=== PATIENT | female | born 1955 | race American Indian/Alaskan Native ===

== ENCOUNTER 2017-02-20 16:10 | Emergency (ER) | payer MEDICAID ==
[2017-02-20 16:46] VITALS: BP 154/78
[2017-02-20] MEDS ORDERED: VIBRAMYCIN PO ONE (19:25)
--- NOTE | 2017-02-20 19:25 | Emergency Department Report ---
ED General Adult HPI - General Chief complaint: Animal Bite Stated complaint: TICK FOUND IN UNDERARM Time Seen by Provider: 02/20/17 19:03 Source: patient Mode of arrival: Ambulatory Limitations: No Limitations - History of Present Illness Initial comments: PT states this afternoon, she noticed a tick under her right arm. PT states that she was unable to get the tick off. PT states she had to have her daughter stick it with a hot needle and it fell off. PT states she did not see where the tick landed. PT states she has not been in the [place] recently but states she does sit out side on her back patio to smoke. PT states she did not see the tick last night when she showered. PT states she is concerned for lyme disease MD Complaint: tick bite -: Gradual, days(s) Location: right, upper extremity Severity scale (0 -10): 0 Consistency: now resolved Improves with: other (after removing tick ) Associated Symptoms: denies other symptoms. denies: fever/chills, loss of appetite, nausea/vomiting, rash, shortness of breath Treatments Prior to Arrival: none - Related Data Previous Rx's Medication Instructions Recorded Last Taken Type Alendronate Sodium [Fosamax] 70 mg PO QWEEK #4 tablet 04/02/15 Unknown Rx Calcium Carbonate [Calcium] 600 mg PO BID #60 tablet 04/02/15 Unknown Rx Gemfibrozil [Lopid] 600 mg PO BID #60 tablet 04/02/15 Unknown Rx Glimepiride [Amaryl] 2 mg PO QAM #30 tablet 04/02/15 Unknown Rx Hydrochlorothiazide [HCTZ] 25 mg PO QDAY #30 tablet 04/02/15 Unknown Rx Loratadine [Claritin] 10 mg PO DAILY #30 tablet 04/02/15 Unknown Rx Losartan [Cozaar] 50 mg PO QDAY #30 tablet 04/02/15 Unknown Rx Montelukast [Singulair] 10 mg PO DAILY #30 tablet 04/02/15 Unknown Rx Omeprazole [PriLOSEC] 40 mg PO QDAY #30 capsule. 04/02/15 Unknown Rx Pregabalin [Lyrica] 100 mg PO TID #90 capsule 04/02/15 Unknown Rx Simvastatin [Zocor TAB] 20 mg PO QHS #30 tablet 04/02/15 Unknown Rx Sitagliptin Phosphate [Januvia] 100 mg PO DAILY #30 tablet 04/02/15 Unknown Rx Trospium Chloride [Trospium 60 mg PO DAILY #30 cap.er.24h 04/02/15 Unknown Rx Chloride ER] Zolpidem Tartrate [Ambien CR] 12.5 mg PO QHS #15 tab.mphase 04/02/15 Unknown Rx metFORMIN [Glucophage] 850 mg PO TID #90 tablet 04/02/15 Unknown Rx Azithromycin [Zithromax Z-AASHISH] 250 mg PO DAILY #6 tablet 12/30/15 Unknown Rx Doxycycline [Vibramycin CAP] 100 mg PO Q12HR #14 capsule 02/20/17 Unknown Rx Allergies Allergy/AdvReac Type Severity Reaction Status Date / Time Sulfa (Sulfonamide Allergy Swelling Verified 04/02/15 13:53 Antibiotics) ED Review of Systems ROS: Stated complaint: TICK FOUND IN UNDERARM Other details as noted in HPI Comment: All other systems reviewed and negative Constitutional: denies: chills, fever Respiratory: denies: shortness of breath, SOB with exertion, SOB at rest Gastrointestinal: denies: abdominal pain, nausea, vomiting Musculoskeletal: arthralgia (chronic ), other (PT states she has a hx of RA ) Skin: change in color (erythema under R arm ) ED Past Medical Hx - Past Medical History Previous Medical History?: Yes Hx Diabetes: Yes Hx Arthritis: Yes Hx Asthma: Yes Additional medical history: High cholesterol. CHRONIC PAIN - Surgical History Past Surgical History?: Yes Additional Surgical History: carpal tunnel. tubal ligation. mass removed from neck - Social History Smoking Status: Current Every Day Smoker Substance Use Type: None - Medications Home Medications: Home Medications Medication Instructions Recorded Confirmed Last Taken Type Alendronate Sodium [Fosamax] 70 mg PO QWEEK #4 tablet 04/02/15 Unknown Rx Calcium Carbonate [Calcium] 600 mg PO BID #60 tablet 04/02/15 Unknown Rx Gemfibrozil [Lopid] 600 mg PO BID #60 tablet 04/02/15 Unknown Rx Glimepiride [Amaryl] 2 mg PO QAM #30 tablet 04/02/15 Unknown Rx Hydrochlorothiazide [HCTZ] 25 mg PO QDAY #30 tablet 04/02/15 Unknown Rx Loratadine [Claritin] 10 mg PO DAILY #30 tablet 04/02/15 Unknown Rx Losartan [Cozaar] 50 mg PO QDAY #30 tablet 04/02/15 Unknown Rx Montelukast [Singulair] 10 mg PO DAILY #30 tablet 04/02/15 Unknown Rx Omeprazole [PriLOSEC] 40 mg PO QDAY #30 capsule.dr 04/02/15 Unknown Rx Pregabalin [Lyrica] 100 mg PO TID #90 capsule 04/02/15 Unknown Rx Simvastatin [Zocor TAB] 20 mg PO QHS #30 tablet 04/02/15 Unknown Rx Sitagliptin Phosphate [Januvia] 100 mg PO DAILY #30 tablet 04/02/15 Unknown Rx Trospium Chloride [Trospium 60 mg PO DAILY #30 cap.er.24h 04/02/15 Unknown Rx Chloride ER] Zolpidem Tartrate [Ambien CR] 12.5 mg PO QHS #15 tab.mphase 04/02/15 Unknown Rx metFORMIN [Glucophage] 850 mg PO TID #90 tablet 04/02/15 Unknown Rx Azithromycin [Zithromax Z-AASHISH] 250 mg PO DAILY #6 tablet 12/30/15 Unknown Rx Doxycycline [Vibramycin CAP] 100 mg PO Q12HR #14 capsule 02/20/17 Unknown Rx ED Physical Exam - General Limitations: No Limitations General appearance: alert, in no apparent distress - Head Head exam: Present: atraumatic, normocephalic, normal inspection - Eye Eye exam: Present: normal appearance. Absent: conjunctival injection, nystagmus - ENT ENT exam: Present: normal exam, mucous membranes moist, normal external ear exam - Neck Neck exam: Present: normal inspection, full ROM. Absent: lymphadenopathy - Respiratory Respiratory exam: Present: normal lung sounds bilaterally. Absent: respiratory distress, chest wall tenderness - Cardiovascular Cardiovascular Exam: Present: regular rate, normal rhythm, normal heart sounds - Extremities Exam Extremities exam: Present: full ROM. Absent: tenderness - Expanded Upper Extremity Exam Right Shoulder Exam: Present: full ROM, erythema (R axilla with 1 cm erythema, no fb seen ). Absent: tenderness, swelling, abrasion Vascular: Present: radial pulse. Absent: vascular compromise - Back Exam Back exam: Present: normal inspection, full ROM - Neurological Exam Neurological exam: Present: alert, oriented X3 - Psychiatric Psychiatric exam: Present: normal affect, normal mood - Skin Skin exam: Present: warm, dry, intact ED Course Vital Signs 02/20/17 16:43 Temperature 99 F Pulse Rate 99 H Blood Pressure 154/78 O2 Sat by Pulse 100 Oximetry - Reevaluation(s) Reevaluation #1: 02/20/17 19:31 Pt aware no residual tick seen. PT aware of plan of care. PT has no questions at this time. - Pulse Oximetry Interpretation Digit-Finger Initial Pulse Oximetry Readin Actions Taken: none ED Medical Decision Making - Differential Diagnosis tick bite, fb Critical Care Time: No Critical care attestation.: If time is entered above; I have spent that time in minutes in the direct care of this critically ill patient, excluding procedure time. ED Disposition Clinical Impression: Tick bite of axillary region Qualifiers: Encounter type: initial encounter Laterality: right Qualified Code(s): S40.861A - Insect bite (nonvenomous) of right upper arm, initial encounter Disposition: TO HOME OR SELFCARE Is pt being admited?: No Does the pt Need Aspirin: No Condition: Stable Instructions: Lyme Disease (ED), Tick Bite (ED), [place] Spotted Fever ( ED) Additional Instructions: Avoid direct sun exposure while you are taking Doxy Follow up with PCP in 3-5 days Have your BP rechecked at follow up Return to the ED if worsening or concerns Prescriptions: Doxycycline [Vibramycin CAP] 100 mg PO Q12HR #14 capsule Referrals: PRIMARY CARE, [Primary Care Provider] - 3-5 Days IVELISSE AGARWAL MD [Staff Physician] - 3-5 Days Time of Disposition: 19:33
== END 2017-02-20 19:40 | disposition home or self-care (01) ==
LOC: ED 16:10
DX: S40.861A Insect bite (nonvenomous) of right upper arm, initial encounter (principal); E11.9 Type 2 diabetes mellitus without complications; M19.90 Unspecified osteoarthritis, unspecified site; J45.909 Unspecified asthma, uncomplicated; E78.00 Pure hypercholesterolemia, unspecified; G89.29 Other chronic pain; F17.200 Nicotine dependence, unspecified, uncomplicated; Z88.2 Allergy status to sulfonamides; W57.XXXA Bitten or stung by nonvenomous insect and other nonvenomous arthropods, initial encounter; Y93.89 Activity, other specified; Y99.9 Unspecified external cause status; Y92.89 Other specified places as the place of occurrence of the external cause
CPT/HCPCS: 99282

== ENCOUNTER 2017-03-17 22:40 | Emergency (ER) | payer MEDICAID ==
[2017-03-18] MEDS ORDERED: NORCO 5/325 PO ONE (00:41)
[2017-03-18] MEDS ORDERED: ZOFRAN ODT PO ONE (00:42)
[2017-03-18] MEDS ORDERED: BOOSTRIX IM ONE (00:42)
[2017-03-18] MEDS ORDERED: XYLOCAINE 2%/ EPI 1:200,000 INFILTRATI ONE ×2 (01:10→01:16)
--- NOTE | 2017-03-18 01:17 | XRay Report ---
FINAL REPORT PROCEDURE: XR HAND 2V RT TECHNIQUE: RIGHT hand radiographs, AP and lateral views. CPT 34382-QZ HISTORY: laceration/trauma to 3RD DIGIT OF rt hand COMPARISON: No prior studies are available for comparison. FINDINGS: Fracture (s) and/or Dislocation(s): None . Alignment: Normal . Joint space(s): Mild narrowing of the joint spaces.. Soft tissues: There is significant soft tissue swelling over the mid to distal 3rd digit right hand. Bandaging over this region is noted. This does obscure some detail.. Bone mineralization: Normal . Foreign bodies: None . IMPRESSION: No evident fracture or dislocation. There is diffuse soft tissue swelling over the mid to distal 3rd digit right hand. There is some artifact caused by bandaging material this region..
[2017-03-18] MEDS ORDERED: ceFAZolin 2 GM in NACL 0.9% 100 ML IV ONE (02:20)
[2017-03-18] MEDS ORDERED: NACL 0.9% 1000 ML 1,000 ML IV ONE (02:20)
[2017-03-18 02:23] LABS: BUN/Creatinine Ratio 22.14; Basophils % (Auto) 0.9 % (0.0-1.8); Chloride 102.5 mmol/L (98-107); Eosinophils % (Auto) 2.2 % (0.0-4.3); Hematocrit 35.3 % (30.3-42.9); Hemoglobin 12.1 gm/dl (10.1-14.3); Mean Corpuscular HGB Conc 34 % (30-34); Mean Corpuscular Hemoglobin 33 pg (28-32); Mean Corpuscular Volume 97 fl (79-97); Platelet Count 289 K/mm3 (140-440); Potassium 4.5 mmol/L (3.6-5.0); Red Blood Count 3.64 M/mm3 (3.65-5.03); Red Cell Distribution Width 13.1 % (13.2-15.2); White Blood Count 9.1 K/mm3 (4.5-11.0)
[2017-03-18] MEDS ORDERED: MORPHINE IV ONE (02:24)
--- NOTE | 2017-03-18 02:28 | Emergency Department Report ---
- General Chief Complaint: Wound/Laceration Stated Complaint: LACERATION TO FINGER Time Seen by Provider: 03/18/17 00:41 Source: patient Mode of arrival: Ambulatory Limitations: No Limitations - History of Present Illness Initial Comments: 61-year-old female past medical history hypertension hyperlipidemia diabetes presents with complaint of laceration to distal right fingertips. 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 Patient has a large laceration to right distal fingertip. States that she bled profusely and noticed a chunk of skin missing which is why she came to the ER. Patient is unsure of tetanus status. Visible bloody-soaked gauze wrap to the right fingertip. Denies any other injuries. States that her right distal index finger and right distal ring finger were grazed at the tips. Patient accompanied by family members. -: This evening Extremity Location: Right: Hand (distal rigth 2nd, 3rd and 4th digit lacerations ) Place: home Patient Tetanus UTD: No Context: accidental Associated Symptoms: pain, other (bleeding) - Related Data Previous Rx's Medication Instructions Recorded Last Taken Type Alendronate Sodium [Fosamax] 70 mg PO QWEEK #4 tablet 04/02/15 Unknown Rx Calcium Carbonate [Calcium] 600 mg PO BID #60 tablet 04/02/15 Unknown Rx Gemfibrozil [Lopid] 600 mg PO BID #60 tablet 04/02/15 Unknown Rx Glimepiride [Amaryl] 2 mg PO QAM #30 tablet 04/02/15 Unknown Rx Hydrochlorothiazide [HCTZ] 25 mg PO QDAY #30 tablet 04/02/15 Unknown Rx Loratadine [Claritin] 10 mg PO DAILY #30 tablet 04/02/15 Unknown Rx Losartan [Cozaar] 50 mg PO QDAY #30 tablet 04/02/15 Unknown Rx Montelukast [Singulair] 10 mg PO DAILY #30 tablet 04/02/15 Unknown Rx Omeprazole [PriLOSEC] 40 mg PO QDAY #30 capsule. 04/02/15 Unknown Rx Pregabalin [Lyrica] 100 mg PO TID #90 capsule 04/02/15 Unknown Rx Simvastatin [Zocor TAB] 20 mg PO QHS #30 tablet 04/02/15 Unknown Rx Sitagliptin Phosphate [Januvia] 100 mg PO DAILY #30 tablet 04/02/15 Unknown Rx Trospium Chloride [Trospium 60 mg PO DAILY #30 cap.er.24h 04/02/15 Unknown Rx Chloride ER] Zolpidem Tartrate [Ambien CR] 12.5 mg PO QHS #15 tab.mphase 04/02/15 Unknown Rx metFORMIN [Glucophage] 850 mg PO TID #90 tablet 04/02/15 Unknown Rx Azithromycin [Zithromax Z-AASHISH] 250 mg PO DAILY #6 tablet 12/30/15 Unknown Rx Doxycycline [Vibramycin CAP] 100 mg PO Q12HR #14 capsule 02/20/17 Unknown Rx Cephalexin [Keflex] 500 mg PO Q6HR #28 cap 03/18/17 Unknown Rx oxyCODONE /ACETAMINOPHEN [Percocet 1 tab PO Q6HR PRN #20 tablet 03/18/17 Unknown Rx 5/325] Allergies Allergy/AdvReac Type Severity Reaction Status Date / Time Sulfa (Sulfonamide Allergy Swelling Verified 04/02/15 13:53 Antibiotics) ED Review of Systems ROS: Stated complaint: LACERATION TO FINGER Other details as noted in HPI Constitutional: denies: chills, fever Eyes: denies: eye pain, eye discharge, vision change ENT: denies: ear pain, throat pain Respiratory: denies: cough, shortness of breath, wheezing Cardiovascular: denies: chest pain, palpitations Endocrine: no symptoms reported Gastrointestinal: denies: abdominal pain, nausea, diarrhea Genitourinary: denies: urgency, dysuria, discharge Musculoskeletal: denies: back pain, joint swelling, arthralgia Skin: denies: rash, lesions Neurological: denies: headache, weakness, paresthesias Psychiatric: denies: anxiety, depression Hematological/Lymphatic: denies: easy bleeding, easy bruising ED Past Medical Hx - Past Medical History Previous Medical History?: Yes Hx Diabetes: Yes (oral meds-no insulin) Hx Arthritis: Yes Hx Asthma: Yes Additional medical history: High cholesterol. CHRONIC PAIN-low back,knees. sciatica. neuropathy - Surgical History Past Surgical History?: Yes Additional Surgical History: carpal tunnel. tubal ligation. mass removed from neck. nasal surgery-polyp removal - Social History Smoking Status: Current Every Day Smoker Substance Use Type: None - Medications Home Medications: Home Medications Medication Instructions Recorded Confirmed Last Taken Type Alendronate Sodium [Fosamax] 70 mg PO QWEEK #4 tablet 04/02/15 Unknown Rx Calcium Carbonate [Calcium] 600 mg PO BID #60 tablet 04/02/15 Unknown Rx Gemfibrozil [Lopid] 600 mg PO BID #60 tablet 04/02/15 Unknown Rx Glimepiride [Amaryl] 2 mg PO QAM #30 tablet 04/02/15 Unknown Rx Hydrochlorothiazide [HCTZ] 25 mg PO QDAY #30 tablet 04/02/15 Unknown Rx Loratadine [Claritin] 10 mg PO DAILY #30 tablet 04/02/15 Unknown Rx Losartan [Cozaar] 50 mg PO QDAY #30 tablet 04/02/15 Unknown Rx Montelukast [Singulair] 10 mg PO DAILY #30 tablet 04/02/15 Unknown Rx Omeprazole [PriLOSEC] 40 mg PO QDAY #30 capsule.dr 04/02/15 Unknown Rx Pregabalin [Lyrica] 100 mg PO TID #90 capsule 04/02/15 Unknown Rx Simvastatin [Zocor TAB] 20 mg PO QHS #30 tablet 04/02/15 Unknown Rx Sitagliptin Phosphate [Januvia] 100 mg PO DAILY #30 tablet 04/02/15 Unknown Rx Trospium Chloride [Trospium 60 mg PO DAILY #30 cap.er.24h 04/02/15 Unknown Rx Chloride ER] Zolpidem Tartrate [Ambien CR] 12.5 mg PO QHS #15 tab.mphase 04/02/15 Unknown Rx metFORMIN [Glucophage] 850 mg PO TID #90 tablet 04/02/15 Unknown Rx Azithromycin [Zithromax Z-AASHISH] 250 mg PO DAILY #6 tablet 12/30/15 Unknown Rx Doxycycline [Vibramycin CAP] 100 mg PO Q12HR #14 capsule 02/20/17 Unknown Rx Cephalexin [Keflex] 500 mg PO Q6HR #28 cap 03/18/17 Unknown Rx oxyCODONE /ACETAMINOPHEN [Percocet 1 tab PO Q6HR PRN #20 tablet 03/18/17 Unknown Rx 5/325] ED Physical Exam - General Limitations: No Limitations General appearance: alert, in no apparent distress - Head Head exam: Present: atraumatic, normocephalic - Eye Eye exam: Present: normal appearance, PERRL, EOMI - ENT ENT exam: Present: mucous membranes moist - Neck Neck exam: Present: normal inspection, full ROM - Respiratory Respiratory exam: Present: normal lung sounds bilaterally. Absent: respiratory distress - Cardiovascular Cardiovascular Exam: Present: regular rate, normal rhythm. Absent: systolic murmur, diastolic murmur, rubs, gallop - GI/Abdominal GI/Abdominal exam: Present: soft, normal bowel sounds - Extremities Exam Extremities exam: Present: normal inspection - Expanded Upper Extremity Exam Right Shoulder Exam: Present: normal inspection, full ROM Upper Arm exam: Present: normal inspection, full ROM Elbow exam: Present: normal inspection, full ROM Forearm Wrist exam: Present: normal inspection, full ROM Hand Wrist exam: Present: full ROM (range of motion lumbricals PIPs DIPs and MCP intact all right hand and digits. Distal capillary refill less than one second all fingers), tenderness, swelling, abrasion (multiple abrasion to fingertips), laceration, amputation (distal right middle fingertip tuft/ fingerpad), nail avulsion (distal edge of middle fingernail avulsed) Hand L/R Front: 1 - Positive: abrasion, amputation, avulsion (boen visible, skin missing) Neuro motor exam: Present: wrist extension intact, thumb opposition intact, thumb IP flexion intact, thumb adduction intact, fingers 2-5 abduction intact, other Neurosensory exam: Present: radial nerve intact, ulnar nerve intact, median nerve intact Vascular: Present: normal capillary refill, radial pulse (strong radial and ulnar pulses) - Back Exam Back exam: Present: normal inspection - Neurological Exam Neurological exam: Present: alert, oriented X3, CN II-XII intact, normal gait - Psychiatric Psychiatric exam: Present: normal affect, normal mood - Skin Skin exam: Present: warm, dry, intact, normal color. Absent: rash ED Course Vital Signs 03/17/17 03/18/17 23:22 05:06 Temperature 98.2 F 98.6 F Pulse Rate 92 H 86 Respiratory 18 18 Rate Blood Pressure 132/59 Blood Pressure 114/74 [Right] O2 Sat by Pulse 99 99 Oximetry - Laceration /Wound Repair Right Distal Finger Wound Location: upper extremity (right distal middel fingertip) Wound Length (cm): 3 (fingertip avulsion) Wound's Depth, Shape: irregular, contused tissue Wound Explored: clean Irrigated w/ Saline (ccs): 1,000 Betadine Prep?: Yes Anesthesia: 1% Lidocaine Volume Anesthetic (ccs): 8 (digital block) Wound Debrided: minimal Wound Repaired With: sutures Suture Size/Type: 4:0 Number of Sutures: 3 (figure 8) Layer Closure?: No Deep Layer Suture Size/Type: 4:0, dexon Sterile Dressing Applied?: Yes Progress: Finger anesthetized with digital block. Good local anesthesia achieved. 3 figure 8 sutures placed directly into the wound site to control bleeding, hemostasis achieved. Dermabond applied to the top of wound then Surgicel to help control and stop bleeding finger then tightly wrapped with Kerlix gauze. Procedure tolerated well. During examination of fingertip it is evident that there is a large avulsions of fingertip with slightly exposed fingertip bone. present for this exam. ED Medical Decision Making - Lab Data Result diagrams: 03/18/17 01:55 03/18/17 01:55 - Medical Decision Making A/P: Right distal middle fingertip laceration 1-tetanus updated 2- [place] when necessary for pain 3-10 day course Keflex. Patient given 2 g of Ancef while in the ED 4- there is a visible distal finger pad/tuft amputation/fingertip avulsion. Bleeding controlled via suture ligation. Dermabond placed over wound site with Surgicel for hemostasis then finger dressed. I advised patient that she should follow up in the ED in 48-72 hours for wound check. Labs are unremarkable. Slight elevation in creatinine. 5- case discussed with Dr. Edgar who also examined the patient. Case discussed with attending before discharge. 6- will give pt f/u with [facility]. I conversed with the patient and her family at bedside regarding the importance of follow-up with orthopedic hand surgery to mitigate any infection, long-term disability and/or permanent disfigurement of limb. I advised patient to return to the ED for any fevers chills nausea vomiting worsened pain at distal fingertip. Patient and family members stated they understood my instructions clearly. Critical care attestation.: If time is entered above; I have spent that time in minutes in the direct care of this critically ill patient, excluding procedure time. ED Disposition Clinical Impression: Abrasions of multiple sites, Laceration Fingertip avulsion Qualifiers: Encounter type: initial encounter Qualified Code(s): S61.209A - Unspecified open wound of unspecified finger without damage to nail, initial encounter Disposition: DC- TO HOME OR SELFCARE Is pt being admited?: No Does the pt Need Aspirin: No Condition: Stable Instructions: Acute Wound Care (ED), Finger Laceration (ED), Skin Avulsion (ED) , Abrasion (ED) Additional Instructions: Wound check 48-72 hours in the ED. Patient advised to call for orthopedic/hand surgery follow-up this week. Patient advised to return to the ED for any fevers chills pus drainage. [email or web address] Prescriptions: Cephalexin [Keflex] 500 mg PO Q6HR #28 cap oxyCODONE /ACETAMINOPHEN [Percocet 5/325] 1 tab PO Q6HR PRN #20 tablet PRN Reason: Pain Referrals: JULIETTE AKHTAR MD [Staff Physician] - 3-5 Days [facility] [Outside] - 3-5 Days ANASTASIA SU MD [Staff Physician] - 3-5 Days [facility] [Provider Group] - 3-5 Days Forms: Work/School Release Form(ED) Time of Disposition: 04:25
[2017-03-18 05:07] VITALS: BP 114/74
== END 2017-03-18 05:07 | disposition home or self-care (01) ==
LOC: ED 22:40
DX: S61.212A Laceration without foreign body of right middle finger without damage to nail, initial encounter (principal); S61.209A Unspecified open wound of unspecified finger without damage to nail, initial encounter; E11.9 Type 2 diabetes mellitus without complications; J45.909 Unspecified asthma, uncomplicated; F17.200 Nicotine dependence, unspecified, uncomplicated; W45.8XXA Other foreign body or object entering through skin, initial encounter; Y93.9 Activity, unspecified; Y92.9 Unspecified place or not applicable; Y99.9 Unspecified external cause status
CPT/HCPCS: 12042; 36415; 73120; 80048; 85025; 90471; 90715; 96365; 96375; 99284; J0690; J2270; J7030; Q0162

== ENCOUNTER 2017-03-21 17:55 | Emergency (ER) | payer MEDICAID ==
[2017-03-21] MEDS ORDERED: TORADOL IM ONE (19:46)
[2017-03-21 19:59] VITALS: BP 160/67
--- NOTE | 2017-03-22 04:58 | Emergency Department Report ---
Entered by YANNICK JOE, acting as scribe for KOLBY TRACY NP. ED Recheck HPI - General Chief Complaint: Extremity Injury, Upper Stated Complaint: FINGER LAC Time Seen by Provider: 03/21/17 19:18 Source: patient Mode of arrival: Ambulatory Limitations: No Limitations - History of Present Illness Initial Comments: This is a 61 y/o female, nontoxic, well nourished in appearance, no acute signs of distress with a PMHx of asthma, IDDM, high cholesterol, sciatica, chronic bilateral knee pain, and neuropathy presents to the ED c/o laceration recheck to right 2nd-4th fingers that began 3 days ago. Patient was seen in this ED on 03/18/2017 to have sutures placed in her right hand to affected fingers secondary to receiving lacerations from placing hand in a honey blender while cooking. Rates current associated pain a 4/10 in severity, which she describes as throbbing in quality. Aggravated with movement and alleviated with medication. Denies any increase in pain, purulent drainage, numbness, tingling, fever, chills, chest pain, SOB, headache, dizziness, nausea, and vomiting. Notes compliancy to prescribed antibiotics, Keflex, and states she takes prescribed Percocets as needed for pain. Patient reports she is currently scheduled for hand surgery in [address] Flores. Allergic to sulfa. Complaint: wound re-check, suture/staple removal -: days(s) Initial Visit For: laceration Returns Today for: staple/Stitch removal Symptoms Since Prior Visit: no new symptoms Context: planned re-check Associated Symptoms: none. denies: fever, chills, chest pain, shortness of breath, rash, malaise, nasuea, abdominal pain Treatments Prior to Arrival: Given Antibiotics on (Keflex), Given Pain Meds on ( Percocet) - Related Data Previous Rx's Medication Instructions Recorded Last Taken Type Alendronate Sodium [Fosamax] 70 mg PO QWEEK #4 tablet 04/02/15 Unknown Rx Calcium Carbonate [Calcium] 600 mg PO BID #60 tablet 04/02/15 Unknown Rx Gemfibrozil [Lopid] 600 mg PO BID #60 tablet 04/02/15 Unknown Rx Glimepiride [Amaryl] 2 mg PO QAM #30 tablet 04/02/15 Unknown Rx Hydrochlorothiazide [HCTZ] 25 mg PO QDAY #30 tablet 04/02/15 Unknown Rx Loratadine [Claritin] 10 mg PO DAILY #30 tablet 04/02/15 Unknown Rx Losartan [Cozaar] 50 mg PO QDAY #30 tablet 04/02/15 Unknown Rx Montelukast [Singulair] 10 mg PO DAILY #30 tablet 04/02/15 Unknown Rx Omeprazole [PriLOSEC] 40 mg PO QDAY #30 capsule.dr 04/02/15 Unknown Rx Pregabalin [Lyrica] 100 mg PO TID #90 capsule 04/02/15 Unknown Rx Simvastatin [Zocor TAB] 20 mg PO QHS #30 tablet 04/02/15 Unknown Rx Sitagliptin Phosphate [Januvia] 100 mg PO DAILY #30 tablet 04/02/15 Unknown Rx Trospium Chloride [Trospium 60 mg PO DAILY #30 cap.er.24h 04/02/15 Unknown Rx Chloride ER] Zolpidem Tartrate [Ambien CR] 12.5 mg PO QHS #15 tab.mphase 04/02/15 Unknown Rx metFORMIN [Glucophage] 850 mg PO TID #90 tablet 04/02/15 Unknown Rx Azithromycin [Zithromax Z-AASHISH] 250 mg PO DAILY #6 tablet 12/30/15 Unknown Rx Doxycycline [Vibramycin CAP] 100 mg PO Q12HR #14 capsule 02/20/17 Unknown Rx Cephalexin [Keflex] 500 mg PO Q6HR #28 cap 03/18/17 Unknown Rx oxyCODONE /ACETAMINOPHEN [Percocet 1 tab PO Q6HR PRN #20 tablet 03/18/17 Unknown Rx 5/325] Ibuprofen [Motrin 600 MG tab] 600 mg PO Q8H PRN #30 tablet 03/21/17 Unknown Rx Allergies Allergy/AdvReac Type Severity Reaction Status Date / Time Sulfa (Sulfonamide Allergy Swelling Verified 04/02/15 13:53 Antibiotics) ED Review of Systems Comment: All other systems reviewed and negative Constitutional: denies: chills, fever Eyes: denies: eye pain, eye discharge, vision change ENT: denies: ear pain, throat pain Respiratory: denies: cough, orthopnea, shortness of breath, SOB with exertion, SOB at rest, stridor, wheezing Cardiovascular: denies: chest pain, palpitations, dyspnea on exertion, orthopnea , edema, syncope, paroxysmal nocturnal dyspnea Endocrine: no symptoms reported Gastrointestinal: denies: abdominal pain, nausea, vomiting, diarrhea Genitourinary: denies: urgency, dysuria, discharge Musculoskeletal: arthralgia (RT 2nd-4th finger pain). denies: back pain, joint swelling, myalgia Skin: denies: rash, lesions Neurological: denies: headache, weakness, numbness, paresthesias Psychiatric: denies: anxiety, depression Hematological/Lymphatic: denies: easy bleeding, easy bruising ED Past Medical Hx - Past Medical History Previous Medical History?: Yes Hx Diabetes: Yes (oral meds-no insulin) Hx Arthritis: Yes Hx Asthma: Yes Additional medical history: High cholesterol. CHRONIC PAIN-low back,knees. sciatica. neuropathy - Surgical History Past Surgical History?: Yes Additional Surgical History: carpal tunnel. tubal ligation. mass removed from neck. nasal surgery-polyp removal - Family History Family history: no significant - Social History Smoking Status: Current Every Day Smoker Substance Use Type: None - Medications Home Medications: Home Medications Medication Instructions Recorded Confirmed Last Taken Type Alendronate Sodium [Fosamax] 70 mg PO QWEEK #4 tablet 04/02/15 Unknown Rx Calcium Carbonate [Calcium] 600 mg PO BID #60 tablet 04/02/15 Unknown Rx Gemfibrozil [Lopid] 600 mg PO BID #60 tablet 04/02/15 Unknown Rx Glimepiride [Amaryl] 2 mg PO QAM #30 tablet 04/02/15 Unknown Rx Hydrochlorothiazide [HCTZ] 25 mg PO QDAY #30 tablet 04/02/15 Unknown Rx Loratadine [Claritin] 10 mg PO DAILY #30 tablet 04/02/15 Unknown Rx Losartan [Cozaar] 50 mg PO QDAY #30 tablet 04/02/15 Unknown Rx Montelukast [Singulair] 10 mg PO DAILY #30 tablet 04/02/15 Unknown Rx Omeprazole [PriLOSEC] 40 mg PO QDAY #30 capsule. 04/02/15 Unknown Rx Pregabalin [Lyrica] 100 mg PO TID #90 capsule 04/02/15 Unknown Rx Simvastatin [Zocor TAB] 20 mg PO QHS #30 tablet 04/02/15 Unknown Rx Sitagliptin Phosphate [Januvia] 100 mg PO DAILY #30 tablet 04/02/15 Unknown Rx Trospium Chloride [Trospium 60 mg PO DAILY #30 cap.er.24h 04/02/15 Unknown Rx Chloride ER] Zolpidem Tartrate [Ambien CR] 12.5 mg PO QHS #15 tab.mphase 04/02/15 Unknown Rx metFORMIN [Glucophage] 850 mg PO TID #90 tablet 04/02/15 Unknown Rx Azithromycin [Zithromax Z-AASHISH] 250 mg PO DAILY #6 tablet 12/30/15 Unknown Rx Doxycycline [Vibramycin CAP] 100 mg PO Q12HR #14 capsule 02/20/17 Unknown Rx Cephalexin [Keflex] 500 mg PO Q6HR #28 cap 03/18/17 Unknown Rx oxyCODONE /ACETAMINOPHEN [Percocet 1 tab PO Q6HR PRN #20 tablet 03/18/17 Unknown Rx 5/325] Ibuprofen [Motrin 600 MG tab] 600 mg PO Q8H PRN #30 tablet 03/21/17 Unknown Rx ED Physical Exam - General Limitations: No Limitations General appearance: alert, in no apparent distress - Head Head exam: Present: atraumatic, normocephalic - Eye Eye exam: Present: normal appearance, PERRL, EOMI Pupils: Present: normal accommodation - ENT ENT exam: Present: normal exam, normal orophraynx, mucous membranes moist, TM's normal bilaterally, normal external ear exam - Neck Neck exam: Present: normal inspection, full ROM. Absent: tenderness, meningismus, lymphadenopathy - Respiratory Respiratory exam: Present: normal lung sounds bilaterally. Absent: respiratory distress, wheezes, rales, rhonchi, stridor, chest wall tenderness, accessory muscle use, decreased breath sounds - Cardiovascular Cardiovascular Exam: Present: regular rate, normal rhythm, normal heart sounds. Absent: systolic murmur, diastolic murmur - GI/Abdominal GI/Abdominal exam: Present: soft, normal bowel sounds. Absent: distended, tenderness - Expanded Upper Extremity Exam Right General: Present: normal inspection Shoulder Exam: Present: normal inspection, full ROM. Absent: tenderness, swelling Upper Arm exam: Present: normal inspection, full ROM Elbow exam: Present: normal inspection, full ROM Forearm Wrist exam: Present: normal inspection, full ROM Hand Wrist exam: Present: normal inspection, full ROM, tenderness, other ( Healing 2 cm lac on the ring finger with 2 sutures. Middle finger healing well. First finger healing well. No signs of any pus or drainage from any digits. No swelling or induration noted. No redness.). Absent: swelling, abrasion, laceration, ecchymosis, deformity, crepidus, dislocation, erythema, amputation, nail avulsion, subungual hematoma Neuro motor exam: Present: wrist extension intact, thumb opposition intact, thumb IP flexion intact, thumb adduction intact, fingers 2-5 abduction intact Neurosensory exam: Present: 2-point discrimination, radial nerve intact, ulnar nerve intact, median nerve intact Vascular: Present: vascular compromise, normal capillary refill, radial pulse, brachial pulse, ulnar pulse - Back Exam Back exam: Present: normal inspection, full ROM. Absent: tenderness, CVA tenderness (R), CVA tenderness (L), muscle spasm, paraspinal tenderness, vertebral tenderness, rash noted - Neurological Exam Neurological exam: Present: alert, oriented X3, CN II-XII intact, normal gait, reflexes normal. Absent: motor sensory deficit - Psychiatric Psychiatric exam: Present: normal affect, normal mood - Skin Skin exam: Present: warm, dry. Absent: intact, rash ED Course Vital Signs 03/21/17 18:03 Temperature 98.6 F Pulse Rate 87 Respiratory 16 Rate Blood Pressure 139/117 O2 Sat by Pulse 99 Oximetry - Reevaluation(s) Reevaluation #1: 03/21/17 19:58 Patient is speaking in full sentences with no signs of distress noted. ED Disposition Clinical Impression: Encounter for wound re-check Disposition: - TO HOME OR SELFCARE Is pt being admited?: No Does the pt Need Aspirin: No Condition: Stable Instructions: Acute Wound Care (ED), Suture Care (ED), Ibuprofen (By mouth) Additional Instructions: Follow-up with your primary care doctor and your hand surgeon in 3-5 days or if symptoms such as pus or driange or worsening of symptoms return to the emergency department as soon as possible. Keep area clean and dry. Continue taking antibiotics as directed during your previous visit. Prescriptions: Ibuprofen [Motrin 600 MG tab] 600 mg PO Q8H PRN #30 tablet PRN Reason: Pain Referrals: ALEXANDRE GARCIA MD [Primary Care Provider] - 3-5 Days AMIE PEREZ MD [Staff Physician] - 3-5 Days [facility] [Outside] - 3-5 Days [facility] [Outside] - 3-5 Days Forms: Work/School Release Form(ED) This documentation as recorded by the TATYANA eller JASMINE,accurately reflects the service I personally performed and the decisions made by me,KOLBY TRACY, STIFF LEG OPERATOR.
== END 2017-03-21 20:23 | disposition home or self-care (01) ==
LOC: ED 17:55
DX: Z48.02 Encounter for removal of sutures (principal); E11.9 Type 2 diabetes mellitus without complications; M19.90 Unspecified osteoarthritis, unspecified site; J45.909 Unspecified asthma, uncomplicated; E78.00 Pure hypercholesterolemia, unspecified; F17.200 Nicotine dependence, unspecified, uncomplicated; Z88.2 Allergy status to sulfonamides
CPT/HCPCS: 96372; 99282; J1885

== ENCOUNTER 2017-04-12 15:45 | Outpatient (CLI) | payer MEDICAID ==
--- NOTE | 2017-04-13 07:21 | XRay Report ---
Cervical spine 4 views: History: Cervicalagia. Findings: Normal height of vertebral bodies. Decrease in height of C5-C6 and C6-C7 with severe cervical spondylosis. No fracture. Normal prevertebral soft tissue. Impression: Severe spondylosis lower cervical spine.
== END 2017-04-12 15:46 | disposition home or self-care (01) ==
LOC: XRAY 15:45
PROVIDERS: ATTEND Physical Medicine & Rehabilitation
DX: M47.892 Other spondylosis, cervical region (principal); J45.909 Unspecified asthma, uncomplicated; F17.200 Nicotine dependence, unspecified, uncomplicated
CPT/HCPCS: 72050

== ENCOUNTER 2017-06-22 10:14 | Emergency (ER) | payer MEDICAID ==
[2017-06-22 10:22] VITALS: BP 125/79
[2017-06-22 11:08] LABS: Basophils % (Auto) 1.1 % (0.0-1.8); Eosinophils % (Auto) 2.9 % (0.0-4.3); Hematocrit 39.4 % (30.3-42.9); Hemoglobin 13.2 gm/dl (10.1-14.3); Mean Corpuscular HGB Conc 34 % (30-34); Mean Corpuscular Hemoglobin 33 pg (28-32); Mean Corpuscular Volume 97 fl (79-97); Platelet Count 326 K/mm3 (140-440); Red Blood Count 4.06 M/mm3 (3.65-5.03); Red Cell Distribution Width 12.8 % (13.2-15.2); White Blood Count 8.5 K/mm3 (4.5-11.0)
[2017-06-22 11:16] LABS: Alanine Aminotransferase 11 units/L (7-56); Albumin 4.4 g/dL (3.9-5); Albumin/Globulin Ratio 1.3 %; Alkaline Phosphatase 153 units/L (35-129); Anion Gap 18 mmol/L; BUN/Creatinine Ratio 30; Bilirubin,Total < 0.20 mg/dL (0.1-1.2); Blood Urea Nitrogen 24 mg/dL (7-17); Calcium 9.4 mg/dL (8.4-10.2); Carbon Dioxide 27 mmol/L (22-30); Chloride 98.6 mmol/L (98-107); Glucose 162 mg/dL (65-100); Potassium 4.7 mmol/L (3.6-5.0); Sodium 139 mmol/L (137-145); Total Protein 7.8 g/dL (6.3-8.2)
--- NOTE | 2017-06-22 11:51 | XRay Report ---
Right third digit: Wound of the third digit. There is mild edema of the soft tissues predominantly affecting the distal half of the digit. The tissues at the finger tip appears to be slightly irregular in contour and possible ulcerated. No underlying bone or joint abnormality is identified. The bones appear well-mineralized. An AP view to include the remainder of the hand demonstrates sub-chondral erosions involving the distal second and third metacarpals. There is also a cyst in the distal first metacarpal. Comparison to prior exam on March 18 is difficult since the third digit was heavily bandaged at that time however the remainder of the hand is unchanged. Impression: The findings are consistent with a soft tissue infection and possible distal third digit ulcer.
[2017-06-22] MEDS ORDERED: ANCEF IM ONE (11:58)
--- NOTE | 2017-06-22 12:10 | Emergency Department Report ---
ED Upper Extremity Inj HPI - General Chief Complaint: Laceration/Recheck/Suture Stated Complaint: RIGHT HAND FINGER PAIN Time Seen by Provider: 06/22/17 10:38 Source: patient, RN notes reviewed, old records reviewed Mode of arrival: Ambulatory Limitations: No Limitations - History of Present Illness Complaint: Injury to:: right (FINGER 3RD) -: Gradual, month(s) Other Extremity Injury: Fingers: Right Other Injuries: none Handedness: right Place: home Improves With: none Worsens With: none Context: other (LAC, STILL NOT HEALING, SEE NOTES, HAS BEEN TO [facility]) Associated Symptoms: denies other symptoms. denies: weakness, numbness, neck pain, suspects foreign body, nausea/vomiting, heard/felt popping sensat - Related Data Previous Rx's Medication Instructions Recorded Last Taken Type Alendronate Sodium [Fosamax] 70 mg PO QWEEK #4 tablet 04/02/15 03/18/17 Rx Calcium Carbonate [Calcium] 600 mg PO BID #60 tablet 04/02/15 03/21/17 Rx Gemfibrozil [Lopid] 600 mg PO BID #60 tablet 04/02/15 03/21/17 Rx Glimepiride [Amaryl] 2 mg PO QAM #30 tablet 04/02/15 03/21/17 Rx Hydrochlorothiazide [HCTZ] 25 mg PO QDAY #30 tablet 04/02/15 03/21/17 Rx Loratadine [Claritin] 10 mg PO DAILY #30 tablet 04/02/15 03/21/17 Rx Losartan [Cozaar] 50 mg PO QDAY #30 tablet 04/02/15 03/21/17 Rx Montelukast [Singulair] 10 mg PO DAILY #30 tablet 04/02/15 03/21/17 Rx Omeprazole [PriLOSEC] 40 mg PO QDAY #30 capsule. 04/02/15 03/21/17 Rx Pregabalin [Lyrica] 100 mg PO TID #90 capsule 04/02/15 03/21/17 Rx Simvastatin [Zocor TAB] 20 mg PO QHS #30 tablet 04/02/15 03/21/17 Rx Sitagliptin Phosphate [Januvia] 100 mg PO DAILY #30 tablet 04/02/15 03/21/17 Rx Zolpidem Tartrate [Ambien CR] 12.5 mg PO QHS #15 tab.mphase 04/02/15 03/21/17 Rx metFORMIN [Glucophage] 850 mg PO TID #90 tablet 04/02/15 03/21/17 Rx Clindamycin [Clindamycin CAP] 150 mg PO Q6HR #40 capsule 06/22/17 Unknown Rx Allergies Allergy/AdvReac Type Severity Reaction Status Date / Time Sulfa (Sulfonamide Allergy Swelling Verified 06/22/17 12:41 Antibiotics) ED Review of Systems ROS: Stated complaint: RIGHT HAND FINGER PAIN Other details as noted in HPI Comment: PT HAS BEEN SEEN HERE AND BY OTHER MD FOR SAME. SP LAC TO HAND W A FINGER THAT IS NOT HEALING. DM. SAW HAND SURG AT [facility] BUT OFF ANBX AND WOUND INFECTION RECURRED. SHE SEES DR DELACRUZ PCP. Constitutional: denies: fever, malaise Skin: other (WOUND) ED Past Medical Hx - Past Medical History Previous Medical History?: Yes Hx Hypertension: Yes Hx Diabetes: Yes (oral meds-no insulin) Hx Arthritis: Yes Hx Asthma: Yes Additional medical history: High cholesterol. CHRONIC PAIN-low back,knees. sciatica. neuropathy - Surgical History Past Surgical History?: Yes Additional Surgical History: carpal tunnel. tubal ligation. mass removed from neck. nasal surgery-polyp removal - Social History Smoking Status: Current Every Day Smoker Substance Use Type: None - Medications Home Medications: Home Medications Medication Instructions Recorded Confirmed Last Taken Type Alendronate Sodium [Fosamax] 70 mg PO QWEEK #4 tablet 04/02/15 03/21/17 Rx Calcium Carbonate [Calcium] 600 mg PO BID #60 tablet 04/02/15 03/21/17 03/21/17 Rx Gemfibrozil [Lopid] 600 mg PO BID #60 tablet 04/02/15 03/21/17 03/21/17 Rx Glimepiride [Amaryl] 2 mg PO QAM #30 tablet 04/02/15 03/21/17 03/21/17 Rx Hydrochlorothiazide [HCTZ] 25 mg PO QDAY #30 tablet 04/02/15 03/21/17 03/21/17 Rx Loratadine [Claritin] 10 mg PO DAILY #30 tablet 04/02/15 03/21/17 03/21/17 Rx Losartan [Cozaar] 50 mg PO QDAY #30 tablet 04/02/15 03/21/17 03/21/17 Rx Montelukast [Singulair] 10 mg PO DAILY #30 tablet 04/02/15 03/21/17 03/21/17 Rx Omeprazole [PriLOSEC] 40 mg PO QDAY #30 capsule. 04/02/15 03/21/17 03/21/17 Rx Pregabalin [Lyrica] 100 mg PO TID #90 capsule 04/02/15 03/21/17 03/21/17 Rx Simvastatin [Zocor TAB] 20 mg PO QHS #30 tablet 04/02/15 03/21/17 03/21/17 Rx Sitagliptin Phosphate [Januvia] 100 mg PO DAILY #30 tablet 04/02/15 03/21/17 Rx Zolpidem Tartrate [Ambien CR] 12.5 mg PO QHS #15 tab.mphase 04/02/15 03/21/17 Rx metFORMIN [Glucophage] 850 mg PO TID #90 tablet 04/02/15 03/21/17 03/21/17 Rx Clindamycin [Clindamycin CAP] 150 mg PO Q6HR #40 capsule 06/22/17 Unknown Rx ED Physical Exam - General Limitations: No Limitations General appearance: alert - Head Head exam: Present: atraumatic - Eye Eye exam: Present: PERRL - ENT ENT exam: Present: mucous membranes moist - Neck Neck exam: Present: normal inspection - Respiratory Respiratory exam: Present: normal lung sounds bilaterally - Cardiovascular Cardiovascular Exam: Present: regular rate - GI/Abdominal GI/Abdominal exam: Present: soft - Rectal Rectal exam: Present: deferred - Extremities Exam Extremities exam: Present: normal inspection, full ROM, tenderness (DISTAL FINGER), normal capillary refill. Absent: pedal edema, joint swelling, calf tenderness - Expanded Upper Extremity Exam Right Neuro motor exam: Present: wrist extension intact, thumb adduction intact, fingers 2-5 abduction intact Neurosensory exam: Present: radial nerve intact, ulnar nerve intact, median nerve intact, other (SENSATION TO FINGER AND HAND INTACT) Vascular: Present: normal capillary refill - Back Exam Back exam: Present: normal inspection - Neurological Exam Neurological exam: Present: alert, oriented X3 - Psychiatric Psychiatric exam: Present: normal affect, normal mood - Skin Skin exam: Present: warm, dry, intact, other (R 3RD FINGER DISTAL WITH HEALING ULCERATION. DM. NO DRAINAGE BUT PT STATES ODOR. SHE IS SP LAC AND WAS ON ANBX. NOW W ODOR. RAPID CAP REFILL. GOOD RADIAL AND ULNAR PULSES. NO FEVER. NO TACHY. NO HYPOHTN. NON TOXIC NON ILL APPEARING. ) ED Course Vital Signs 06/22/17 10:17 Temperature 98.2 F Pulse Rate 96 H Respiratory 16 Rate Blood Pressure 125/79 O2 Sat by Pulse 98 Oximetry - Reevaluation(s) Reevaluation #1: 06/22/17 12:47 GIVEN HX LABS CHECKED WBC N XRAY NOTED IM ANCEF DC HOME W ANBX FOLLOW UP WITH THE HAND SPECIALIST ON SUNDAY AND/OR DR DELACRUZ PT EDUCATED ON CONCERNS GIVEN HER DM. WOUND CARE INSTRUCTIONS GIVEN S/S TO RETURN FOR GIVEN TO PT. SHE IS RELIABLE FOR FOLLOW UP ED Medical Decision Making - Lab Data Result diagrams: 06/22/17 10:47 06/22/17 10:47 - Radiology Data Radiology results: report reviewed - Medical Decision Making SEE NOTE - Differential Diagnosis RO OSTEOMYLITIS Critical care attestation.: If time is entered above; I have spent that time in minutes in the direct care of this critically ill patient, excluding procedure time. ED Disposition Clinical Impression: Finger infection, Diabetes Disposition: DC- TO HOME OR SELFCARE Is pt being admited?: No Does the pt Need Aspirin: No Condition: Stable Instructions: Cellulitis (ED) Additional Instructions: KEEP CLEAN AND DRY MED ORDERED FOLLOW UP WITH HAND SURG. DR SURESH IS AT [facility] DR AKHTAR IS COMPOUNDING AND FINISHING SUPERVISOR HERE AT [facility] FOR PAIN MONITOR BLOOD SUGAR SEE DR DELACRUZ ON SUNDAY TAKE ANTIBIOTIC WITH FOOD Prescriptions: Clindamycin [Clindamycin CAP] 150 mg PO Q6HR #40 capsule Referrals: PRIMARY CARE, [Primary Care Provider] - 3-5 Days HAYDEN DELACRUZ MD [Staff Physician] - 3-5 Days JESSY SURESH MD [Staff Physician] - 3-5 Days Time of Disposition: 12:07
[2017-06-22] MEDS ORDERED: NACL 0.9% 1000 ML 1,000 ML ONE (12:35)
== END 2017-06-22 12:47 | disposition home or self-care (01) ==
LOC: ED 10:14
DX: L08.89 Other specified local infections of the skin and subcutaneous tissue (principal); S61.212D Laceration without foreign body of right middle finger without damage to nail, subsequent encounter; I10 Essential (primary) hypertension; E11.9 Type 2 diabetes mellitus without complications; M19.90 Unspecified osteoarthritis, unspecified site; J45.909 Unspecified asthma, uncomplicated; E78.00 Pure hypercholesterolemia, unspecified; F17.200 Nicotine dependence, unspecified, uncomplicated; Z88.2 Allergy status to sulfonamides; X58.XXXD Exposure to other specified factors, subsequent encounter
CPT/HCPCS: 36415; 73140; 80053; 85025; 96372; 99284; J0690; J7030

== ENCOUNTER 2017-11-19 13:21 | Outpatient (CLI) | payer MEDICAID ==
--- NOTE | 2017-11-19 14:06 | XRay Report ---
ROUTINE CHEST, TWO VIEWS: HISTORY: Smoking 40 years. The trachea, heart, mediastinal contour, lung john and bony thorax are unremarkable. IMPRESSION: Unremarkable chest x-ray. No change since 12/30/15
== END 2017-11-19 13:22 | disposition home or self-care (01) ==
LOC: XRAY 13:21
DX: F17.200 Nicotine dependence, unspecified, uncomplicated (principal)
CPT/HCPCS: 71046

== ENCOUNTER 2019-08-25 13:38 | Outpatient (CLI) | payer MEDICAID ==
[2019-08-25 14:12] LABS: Creatinine,Urine 39.6 mg/dL (0.1-20.0)
[2019-08-25 14:14] LABS: Bilirubin,Urine NEG (Negative); Blood,Urine SM (Negative); Color,Urine Straw (Yellow); Mucus,Urine FEW /HPF; Protein,Urine <15 mg/dL mg/dL (Negative); Urobilinogen,Urine < 2.0 mg/dL (<2.0); WBC,Urine < 1.0 /HPF (0.0-6.0)
[2019-08-25 14:19] LABS: Microalbumin/Creatinine Ratio 30.3 ug/mg
[2019-08-25 14:29] LABS: Albumin 4.2 g/dL (3.9-5); BUN/Creatinine Ratio 16; Blood Urea Nitrogen 16 mg/dL (7-17); Calcium 9.3 mg/dL (8.4-10.2); Hemolysis Index 8
== END 2019-08-25 13:39 | disposition home or self-care (01) ==
LOC: LAB 13:38
PROVIDERS: ATTEND Internal Medicine Nephrology
DX: I10 Essential (primary) hypertension (principal); E11.8 Type 2 diabetes mellitus with unspecified complications; E78.5 Hyperlipidemia, unspecified; J44.0 Chronic obstructive pulmonary disease with (acute) lower respiratory infection
CPT/HCPCS: 36415; 80048; 81001; 82040; 82043; 84100

== ENCOUNTER 2020-05-03 13:25 | Emergency (ER) | payer MEDICARE ==
[2020-05-03 13:41] VITALS: BP 126/72
[2020-05-03] MEDS ORDERED: CLINDAMYCIN 150 MG/ML VIAL 6 ML IM ONE (15:02)
--- NOTE | 2020-05-03 15:20 | Emergency Department Report ---
- General Chief complaint: Skin/Abscess/Foreign Body Stated complaint: SPIDER BITE Time Seen by Provider: 05/03/20 14:35 Source: patient Mode of arrival: Ambulatory Limitations: No Limitations - History of Present Illness Initial comments: Patient is a 65-year-old female presents emergency room with complaints of a spider bite to the right lower leg that occurred 3 days ago. Patient states that she did not see or feel what bit her. She states that she was sitting outside and has seen spiders in that area before. She states that it did come to ahead and she popped it on her own and purulent drainage was released but it stopped draining. She has associated right leg swelling, pain, redness. She states that she has had chills. She denies any fever, vomiting, numbness, weakness. She has a past medical history of diabetes. She has an allergy to sulfa. According to patient's chart her last tetanus immunization was in 2017. - Related Data Previous Rx's Medication Instructions Recorded Last Taken Type Alendronate Sodium [Fosamax] 70 mg PO QWEEK #4 tablet 04/02/15 03/18/17 Rx Calcium Carbonate [Calcium 600MG 600 mg PO BID #60 tablet 04/02/15 03/21/17 Rx TAB] Glimepiride [Amaryl] 2 mg PO QAM #30 tablet 04/02/15 03/21/17 Rx Loratadine (Nf) [Claritin (Nf)] 10 mg PO DAILY #30 tablet 04/02/15 03/21/17 Rx Losartan [Cozaar] 50 mg PO QDAY #30 tablet 04/02/15 03/21/17 Rx Montelukast [Singulair] 10 mg PO DAILY #30 tablet 04/02/15 03/21/17 Rx Omeprazole [PriLOSEC] 40 mg PO QDAY #30 capsule. 04/02/15 03/21/17 Rx Pregabalin [Lyrica] 100 mg PO TID #90 capsule 04/02/15 03/21/17 Rx Simvastatin (Nf) [Zocor TAB] 20 mg PO QHS #30 tablet 04/02/15 03/21/17 Rx Sitagliptin Phosphate [Januvia] 100 mg PO DAILY #30 tablet 04/02/15 03/21/17 Rx Zolpidem Tartrate [Ambien CR] 12.5 mg PO QHS #15 tab.mphase 04/02/15 03/21/17 Rx gemfibroziL [Lopid] 600 mg PO BID #60 tablet 04/02/15 03/21/17 Rx hydroCHLOROthiazide [HCTZ] 25 mg PO QDAY #30 tablet 04/02/15 03/21/17 Rx metFORMIN [Glucophage] 850 mg PO TID #90 tablet 04/02/15 03/21/17 Rx Clindamycin [Clindamycin CAP] 150 mg PO Q6HR #40 capsule 06/22/17 Unknown Rx Clindamycin [Clindamycin CAP] 450 mg PO TID 7 Days #63 capsule 05/03/20 Unknown Rx traMADoL [Ultram 50 MG tab] 50 mg PO Q6HR PRN #7 tablet 05/03/20 Unknown Rx Allergies Allergy/AdvReac Type Severity Reaction Status Date / Time Sulfa (Sulfonamide Allergy Swelling Verified 06/22/17 12:41 Antibiotics) Abscess Boil HPI - HPI Chief Complaint: Skin/Abscess/Foreign Body Stated Complaint: SPIDER BITE Time Seen by Provider: 05/03/20 14:35 Home Medications: Previous Rx's Medication Instructions Recorded Last Taken Type Alendronate Sodium [Fosamax] 70 mg PO QWEEK #4 tablet 04/02/15 03/18/17 Rx Calcium Carbonate [Calcium 600MG 600 mg PO BID #60 tablet 04/02/15 03/21/17 Rx TAB] Glimepiride [Amaryl] 2 mg PO QAM #30 tablet 04/02/15 03/21/17 Rx Loratadine (Nf) [Claritin (Nf)] 10 mg PO DAILY #30 tablet 04/02/15 03/21/17 Rx Losartan [Cozaar] 50 mg PO QDAY #30 tablet 04/02/15 03/21/17 Rx Montelukast [Singulair] 10 mg PO DAILY #30 tablet 04/02/15 03/21/17 Rx Omeprazole [PriLOSEC] 40 mg PO QDAY #30 capsule. 04/02/15 03/21/17 Rx Pregabalin [Lyrica] 100 mg PO TID #90 capsule 04/02/15 03/21/17 Rx Simvastatin (Nf) [Zocor TAB] 20 mg PO QHS #30 tablet 04/02/15 03/21/17 Rx Sitagliptin Phosphate [Januvia] 100 mg PO DAILY #30 tablet 04/02/15 03/21/17 Rx Zolpidem Tartrate [Ambien CR] 12.5 mg PO QHS #15 tab.mphase 04/02/15 03/21/17 Rx gemfibroziL [Lopid] 600 mg PO BID #60 tablet 04/02/15 03/21/17 Rx hydroCHLOROthiazide [HCTZ] 25 mg PO QDAY #30 tablet 04/02/15 03/21/17 Rx metFORMIN [Glucophage] 850 mg PO TID #90 tablet 04/02/15 03/21/17 Rx Clindamycin [Clindamycin CAP] 150 mg PO Q6HR #40 capsule 06/22/17 Unknown Rx Clindamycin [Clindamycin CAP] 450 mg PO TID 7 Days #63 capsule 05/03/20 Unknown Rx traMADoL [Ultram 50 MG tab] 50 mg PO Q6HR PRN #7 tablet 05/03/20 Unknown Rx Allergies/Adverse Reactions: Allergies Allergy/AdvReac Type Severity Reaction Status Date / Time Sulfa (Sulfonamide Allergy Swelling Verified 06/22/17 12:41 Antibiotics) ED Review of Systems ROS: Stated complaint: SPIDER BITE Other details as noted in HPI Comment: All other systems reviewed and negative ED Past Medical Hx - Past Medical History Previous Medical History?: Yes Hx Hypertension: Yes Hx Diabetes: Yes (oral meds-no insulin) Hx Arthritis: Yes Hx Asthma: Yes Additional medical history: High cholesterol. CHRONIC PAIN-low back,knees. sciatica. neuropathy - Surgical History Past Surgical History?: Yes Additional Surgical History: carpal tunnel. tubal ligation. mass removed from neck. nasal surgery-polyp removal - Social History Smoking Status: Never Smoker Substance Use Type: None - Medications Home Medications: Home Medications Medication Instructions Recorded Confirmed Last Taken Type Alendronate Sodium [Fosamax] 70 mg PO QWEEK #4 tablet 04/02/15 03/21/17 03/18/17 Rx Calcium Carbonate [Calcium 600MG 600 mg PO BID #60 tablet 04/02/15 03/21/17 03/21/17 Rx TAB] Glimepiride [Amaryl] 2 mg PO QAM #30 tablet 04/02/15 03/21/17 03/21/17 Rx Loratadine (Nf) [Claritin (Nf)] 10 mg PO DAILY #30 tablet 04/02/15 03/21/17 03/21/17 Rx Losartan [Cozaar] 50 mg PO QDAY #30 tablet 04/02/15 03/21/17 03/21/17 Rx Montelukast [Singulair] 10 mg PO DAILY #30 tablet 04/02/15 03/21/17 03/21/17 Rx Omeprazole [PriLOSEC] 40 mg PO QDAY #30 capsule. 04/02/15 03/21/17 03/21/17 Rx Pregabalin [Lyrica] 100 mg PO TID #90 capsule 04/02/15 03/21/17 03/21/17 Rx Simvastatin (Nf) [Zocor TAB] 20 mg PO QHS #30 tablet 04/02/15 03/21/17 03/21/17 Rx Sitagliptin Phosphate [Januvia] 100 mg PO DAILY #30 tablet 04/02/15 03/21/17 03/21/17 Rx Zolpidem Tartrate [Ambien CR] 12.5 mg PO QHS #15 tab.mphase 04/02/15 03/21/17 03/21/17 Rx gemfibroziL [Lopid] 600 mg PO BID #60 tablet 04/02/15 03/21/17 03/21/17 Rx hydroCHLOROthiazide [HCTZ] 25 mg PO QDAY #30 tablet 04/02/15 03/21/17 03/21/17 Rx metFORMIN [Glucophage] 850 mg PO TID #90 tablet 04/02/15 03/21/17 03/21/17 Rx Clindamycin [Clindamycin CAP] 150 mg PO Q6HR #40 capsule 06/22/17 Unknown Rx Clindamycin [Clindamycin CAP] 450 mg PO TID 7 Days #63 capsule 05/03/20 Unknown Rx traMADoL [Ultram 50 MG tab] 50 mg PO Q6HR PRN #7 tablet 05/03/20 Unknown Rx ED Physical Exam - General Limitations: No Limitations General appearance: alert, in no apparent distress - Head Head exam: Present: atraumatic, normocephalic - Eye Eye exam: Present: normal appearance - ENT ENT exam: Present: mucous membranes moist - Respiratory Respiratory exam: Absent: respiratory distress, accessory muscle use - Neurological Exam Neurological exam: Present: alert, oriented X3 - Psychiatric Psychiatric exam: Present: normal affect, normal mood - Skin Skin exam: Present: warm, dry, other (3 cm area of induration with a 5 cm area of surrounding erythema, there is a small central scab, no fluctuance, no drainage, no necrosis, no skin denuding, no blistering, neurovascularly intact) ED Course Vital Signs 05/03/20 05/03/20 13:40 15:24 Temperature 99.7 F H 98.7 F Pulse Rate 104 H 98 H Respiratory 18 16 Rate Blood Pressure 126/72 [Right] O2 Sat by Pulse 97 98 Oximetry ED Medical Decision Making - Medical Decision Making Patient is a 65-year-old female presents emergency room with complaints of a spider bite to the right lower leg that occurred 3 days ago. Patient states that she did not see or feel what bit her. She states that she was sitting outside and has seen spiders in that area before. She states that it did come to ahead and she popped it on her own and purulent drainage was released but it stopped draining. She has associated right leg swelling, pain, redness. She states that she has had chills. She denies any fever, vomiting, numbness, weakness. She has a past medical history of diabetes. She has an allergy to sulfa. According to patient's chart her last tetanus immunization was in 2017. Initial triage vitals with mild elevated temperature and mild elevated heart rate which improved to normal upon repeat without intervention. On exam: 3 cm area of induration with a 5 cm area of surrounding erythema, there is a small central scab, no fluctuance, no drainage, no necrosis, no skin denuding, no blistering, neurovascularly intact. Appears could likely be secondary to spider bite, she also has cellulitis. no drainable abscess at this time. Skin marker used to imelda the area of erythema. Patient has an allergy to sulfa so we will give patient clindamycin. Patient given clindamycin IM while in the emergency department. Patient given prescription for clindamycin and tramadol. Advised patient Please take medication as prescribed. Do not drive or operate machinery while taking pain medication. Please follow-up with your primary care doctor within the next 2 to 3 days and have the area reexamined. Return to emergency room immediately for any new or worsening symptoms. Return to emergency room immediately if the redness or swelling starts across the line marked on your leg. - Differential Diagnosis cellulitis, spider bite, insect bite, abscess Critical care attestation.: If time is entered above; I have spent that time in minutes in the direct care of this critically ill patient, excluding procedure time. ED Disposition Clinical Impression: Spider bite Qualifiers: Encounter type: initial encounter Injury intent: accidental or unintentional Qualified Code(s): T63.301A - Toxic effect of unspecified spider venom, accidental (unintentional), initial encounter Cellulitis Qualifiers: Site of cellulitis: extremity Site of cellulitis of extremity: lower extremity Laterality: right Qualified Code(s): L03.115 - Cellulitis of right lower limb Disposition: DC- TO HOME OR SELFCARE Is pt being admited?: No Does the pt Need Aspirin: No Condition: Stable Instructions: Cellulitis (ED) Additional Instructions: Please take medication as prescribed. Do not drive or operate machinery while taking pain medication. Please follow-up with your primary care doctor within the next 2 to 3 days and have the area reexamined. Return to emergency room immediately for any new or worsening symptoms. Return to emergency room immediately if the redness or swelling starts across the line marked on your leg. Prescriptions: Clindamycin [Clindamycin CAP] 450 mg PO TID 7 Days #63 capsule traMADoL [Ultram 50 MG tab] 50 mg PO Q6HR PRN #7 tablet PRN Reason: Pain , Severe (7-10) Referrals: your, primary care doctor [Other] - 2-3 Days LAURIE ARZATE MD [Staff Physician] - 2-3 Days [facility] [Provider Group] - 2-3 Days Time of Disposition: 15:25 Print Language: MALIAN
== END 2020-05-03 16:17 | disposition home or self-care (01) ==
LOC: ED 13:25
DX: T63.391A Toxic effect of venom of other spider, accidental (unintentional), initial encounter (principal); L03.115 Cellulitis of right lower limb; I10 Essential (primary) hypertension; E11.9 Type 2 diabetes mellitus without complications; M13.88 Other specified arthritis, other site; J45.909 Unspecified asthma, uncomplicated; E78.00 Pure hypercholesterolemia, unspecified; E11.40 Type 2 diabetes mellitus with diabetic neuropathy, unspecified; Z79.899 Other long term (current) drug therapy; Z98.51 Tubal ligation status; Z98.890 Other specified postprocedural states; Z88.2 Allergy status to sulfonamides; Y92.89 Other specified places as the place of occurrence of the external cause
CPT/HCPCS: 96372; 99281